=== PATIENT | male | born 1985 | race Caucasian/White ===

== ENCOUNTER 2021-11-01 08:46 | Emergency (ER) | payer OTHER, SELFPAY ==
--- NOTE | ~2021-11-01 | XR_ITS ---
EXAMINATION: XR CHEST CLINICAL INFORMATION: Cough, SOB. COMPARISON: None TECHNIQUE: Frontal view of the chest was obtained. FINDINGS: The lungs are well-expanded and clear of acute process. The heart size and pulmonary vascularity is normal. There is mild S-shaped scoliosis of dorsal spine. No lytic process. XR/XR chest 1V IMPRESSION: No acute cardiopulmonary process seen. Mild scoliosis..
[2021-11-01 09:21] VITALS: BP 117/60; PULSE 68; RESP 17; TEMP 36.1; O2SAT 96; BMI 25.8
--- NOTE | 2021-11-01 09:47 | ED.GENADULT ---
HPI - General Adult General Chief complaint: General Medical Stated complaint: Sore throat/back pain Time Seen by Provider: 11/01/21 09:23 Source: patient Mode of arrival: ambulatory History of Present Illness HPI narrative: 35-year-old male with no significant past medical history presenting to the ED complaining of sore throat, myalgias, productive cough, mild SOB x5 days. Also reports low back pain radiating down left lower extremity x a few days from [employer] at work. Denies fever, ear pain, recent travel, COVID-19 exposure, noon back injury, urinary incontinence/retention, numbness, tingling, weakness Onset (ago): day(s) Radiation: extremity Severity: mild Pain Consistency: constant Exacerbating factors: movement Associated symptoms: cough and shortness of breath Related Data Previous Rx's Medication Instructions Recorded acetaminophen 500 mg tablet 500 mg PO Q6H PRN #20 tab 11/01/21 (Tylenol Extra Strength) cyclobenzaprine 5 mg tablet 5 mg PO Q8H PRN 5 Days #14 tab 11/01/21 lidocaine 5 % topical patch 1 patch TOPICAL DAILY PRN #30 ea 11/01/21 (Lidoderm) MDD remove after 12 hours naproxen 500 mg tablet 500 mg PO BID PRN 10 Days #20 tab 11/01/21 Allergies Allergy/AdvReac Type Severity Reaction Status Date / Time No Known Allergies Allergy Verified 11/01/21 09:24 [No Known Allergies*] Review of Systems Review of Systems: Constitutional: No Fever, No Chills, No Fatigue, No Malaise ENT/Mouth: No Ear Pain, No Nasal Congestion, No Sinus Pain, No Hoarseness, + sore throat Eyes: No Eye Pain, No Swelling, No Redness, No Discharge, No Vision Changes Cardiovascular: No Chest Pain, + SOB, No Edema, No Palpitations Respiratory: + Cough, + Sputum, No Wheezing, No Smoke Exposure, No Dyspnea Gastrointestinal: No Nausea, No Vomiting, No Diarrhea, No Constipation, No Abdominal pain Genitourinary: No Dysuria, No Urinary Frequency, No Hematuria,No Flank Pain, no urinary incontinence/retention Musculoskeletal: + joint pain, + Myalgias, No Joint Swelling Skin: No Skin Lesions, No rash Neuro: No Weakness, No Numbness, No Paresthesias, No Dizziness, No Headache Yes all other systems are reviewed and are negative Neurologic: Denies Sensory deficit (Neuro) [facility] Past Medical History Attestation statement: The following information was validated with the patient. Medical History No known health problems Social History Social History Advance Directives: No Advance Directives Information Provided: No Physical Exam Vital Signs: Vital Signs: Last Vital Signs Temp 97.0 F 11/01/21 09:21 Pulse 68 11/01/21 10:16 Resp 17 11/01/21 09:21 BP 117/60 11/01/21 09:21 Pulse Ox 96 11/01/21 09:21 BMI result Body Mass Index 25.8 Const: General: cooperative, healthy appearing and no acute distress Orientation/consciousness: patient oriented x3 Limitations: no limitations HENMT: Head: Yes normal to inspection Ears: hearing grossly normal bilaterally General nose exam: Normal external nose present Face and sinus: Yes normal facial exam Mouth: Normal oral and palatal mucosa present Throat: Yes posterior oropharynx normal, Yes tonsils normal, Yes uvula midline and No peritonsillar mass Eyes: General: appearance normal, both eyes and all related structures EOM: EOMs intact bilaterally Neck: Neck: Yes normal visual inspection, Yes no lymphadenopathy and Yes no meningeal signs Resp: Effort & Inspection: normal respiratory effort Auscultation: wheezes (Slight end-expiratory wheeze) Cardio: Rate: regular rate Heart sounds: S1 normal heart sound present and S2 normal heart sound present GI: Inspection: Yes normal to inspection Palpation (GI): Soft to palpation and nontender : General: Yes no CVA tenderness Back/Spine/Pelvis: Other: No midline thoracic/lumbar spinous tenderness/step-off or deformity. Bilateral lumbar paraspinal/MSK tenderness to palpation Back: no CVA tenderness Skin: Rashes: no rashes Wounds: no wounds Neuro: General: patient oriented x3 and no meningeal signs Gait exam (Neuro): Normal gait present Motor exam (neuro): 5/5 motor strength present throughout Sensory Exam: No Sensory deficit (Neuro) Extrem: Other: No saddle anesthesia. Ambulating with steady gait General: Yes normal to inspection Course Course Course Narrative: -COVID-19 and rapid strep negative. CXR unremarkable. Results discussed with patient including worrisome signs and symptoms and strict return precautions Medical Decision Making MDM Narrative Medical decision making narrative: 35-year-old male with no significant past medical history presenting to the ED complaining of sore throat, myalgias, productive cough, mild SOB x5 days. Also reports low back pain radiating down left lower extremity x a few days from [employer] at work. On exam vital signs stable, NAD/nontoxic, lungs with mild end expiratory wheeze, no midline spinous tenderness throughout, no red flag symptoms, no saddle anesthesia. Concern for viral syndrome/COVID-19. Rule out pneumonia. Likely MSK back pain/strain/muscle spasming. Low concern for cauda equina/cord compression or fracture. Plan: COVID-19 testing, rapid strep, CXR, albuterol inhaler Lab Data Labs: Lab Results 11/01/21 11/01/21 Range/Units 09:47 09:47 COVID-19 (LUPE) Negative (Negative) COVID-19 Clin Com See Note S. pyogenes GrpA RAMIREZ Negative (Negative) Discharge Plan Discharge Clinical Impression: Acute viral syndrome Low back pain Qualifiers: Chronicity: acute Back pain laterality: bilateral Sciatica presence: with sciatica Sciatica laterality: sciatica of left side Qualified Code(s): M54.42 - Lumbago with sciatica, left side Patient Disposition: Home, Self-Care Instructions: Acute Low Back Pain (ED), Viral Syndrome (ED) Additional Instructions: You Tested negative for COVID-19 and strep throat. your chest x-ray was unremarkable Your back pain is likely musculoskeletal Flexeril is a muscle relaxer, take at night as it makes you drowsy, do not drive, drink alcohol, or operate machinery while taking it Naproxen as an anti-inflammatory / pain medication, take with food Lidoderm patches are numbing patches, apply to painful area In addition take Tylenol at home If symptoms persist or worsen, pain becomes unbearable, you developed urinary retention or incontinence, or weakness return to the ED Prescriptions: New acetaminophen [Tylenol Extra Strength] 500 mg tablet 500 mg PO Q6H PRN (Reason: pain or fever) Qty: 20 RF: 0 lidocaine [Lidoderm] 5 % adhesive patch,medicated 1 patch topical DAILY MDD remove after 12 hours PRN (Reason: pain) Qty: 30 RF: 0 naproxen 500 mg tablet 500 mg PO BID PRN (Reason: pain) 10 Days Qty: 20 RF: 0 cyclobenzaprine 5 mg tablet 5 mg PO Q8H PRN (Reason: pain (scale score 7-10)) 5 Days Qty: 14 RF: 0 Referrals: Physician,None [Primary Care Provider] - 5 days Stand Alone Forms: Work/School Release
[2021-11-01 10:08] LABS: IDNOW Serial# 08D9AD1C; Strep A Nucleic Acid Negative (Negative)
[2021-11-01 10:12] LABS: COVID-19 Test Negative (Negative); IDNOW Serial# 9DD0AD1C
[2021-11-01] MEDS: Albuterol Sulfate 90 MCG 8 GM INHALER 4 PUFF INHALE (10:15)
[2021-11-01 10:16] VITALS: PULSE 68; O2SAT 96
== END 2021-11-01 10:43 | disposition home or self-care (01) ==
PROVIDERS: Physician Assistant; Emergency Provider Emergency Medicine
DX: B34.9 Viral infection, unspecified (principal); Z20.822 Contact with and (suspected) exposure to COVID-19; M54.42 Lumbago with sciatica, left side
CPT/HCPCS: 36415; 71045; 87635; 87651; 94640; 99283; 99284

== ENCOUNTER 2022-01-22 03:45 | Emergency (ER) | payer OTHER, SELFPAY ==
[2022-01-22 03:49] VITALS: BP 126/80; BP 138/98; PULSE 66; PULSE 87; RESP 16; TEMP 36.8; O2SAT 100; O2SAT 97; BMI 22.9
[2022-01-22 04:00] VITALS: RESP 16
--- NOTE | 2022-01-22 04:02 | ED_ITS ---
HPI - General Adult General Chief complaint: ETOH/Substance Use Stated complaint: WITHDRAWING Time Seen by Provider: 01/22/22 03:58 Source: patient and EMS Mode of arrival: EMS Limitations: no limitations History of Present Illness HPI narrative: Patient comes to emergency room via EMS complaining of feeling dope sick . Patient states that the last time that he used heroin was approximately 24 hours ago. Patient has been working for the last 24 hours snow [employer]. Patient states that he feels very uncomfortable, restless. Patient is looking for permanent treatment for heroin addiction Related Data Previous Rx's Medication Instructions Recorded acetaminophen 500 mg tablet 500 mg PO Q6H PRN #20 tab 11/01/21 (Tylenol Extra Strength) cyclobenzaprine 5 mg tablet 5 mg PO Q8H PRN 5 Days #14 tab 11/01/21 lidocaine 5 % topical patch 1 patch TOPICAL DAILY PRN #30 ea 11/01/21 (Lidoderm) MDD remove after 12 hours naproxen 500 mg tablet 500 mg PO BID PRN 10 Days #20 tab 11/01/21 Allergies Allergy/AdvReac Type Severity Reaction Status Date / Time No Known Allergies Allergy Verified 11/01/21 09:24 [No Known Allergies*] Review of Systems Review of Systems: Constitutional : No Weight loss, No Fever, No Chills, No Night Sweats, No Fatigue, complaining of generalized malaise, feeling shaking ENT/Mouth : No Hearing loss, No Ear Pain, No Nasal Congestion, No Sinus Pain, No Hoarseness, No sore throat, No Rhinorrhea, No Swallowing Difficulty Eyes: No Eye Pain, No Swelling, No Redness, No Foreign Body, No Discharge, No Vision Changes Cardiovascular : No Chest Pain, No SOB, No Dyspnea on Exertion, No Orthopnea, No Edema, No Palpitations Respiratory : No Cough, No Sputum, No Wheezing, No Smoke Exposure, No Dyspnea Gastrointestinal : Feeling nauseous No Vomiting, No Diarrhea, No Constipation, No abdominal Pain, No Hematochezia, No Melena Genitourinary : no irregular bleeding, No Dysuria, No Urinary Frequency, No Hematuria, No Urinary Incontinence, No Urgency, No Flank Pain, No Urinary Flow Changes, No Hesitancy Musculoskeletal : No joint pain, No Myalgias, No Joint Swelling Skin : No Skin Lesions, No rash Neuro : No Weakness, No Numbness, No Paresthesias, No Loss of Consciousness, No Dizziness, No Headache Psych : No Anxiety/Panic, No Depression, No SI/HI/AH/VH, No Social Issues, Heme/Lymph: No Bruising, No Bleeding,No Lymphadenopathy Endocrine : No Polyuria, No Polydipsia, No Temperature Intolerance [facility] Past Medical History Medical History (Updated 01/22/22 @ 04:06 by Maritza Hansen MD) Heroin abuse No known health problems Social History Social History Advance Directives: No Physical Exam ED Vital Signs: Vital Signs - 24 hr 01/22/22 03:49 01/22/22 04:00 Temperature 98.2 F Pulse Rate 66 Respiratory Rate 16 16 Blood Pressure 126/80 Pulse Oximetry 97 BMI result Body Mass Index 22.9 Const Other: Appearance: Alert. Oriented X3. Since uncomfortable Eyes: Pupils equal, round and reactive to light. ENT: Pharynx normal. Neck: Normal inspection. Neck supple. No lymph nodes noted. No crepitus CVS: Normal heart rate and rhythm. Pulses normal. Normal S1 and S2 Respiratory: No respiratory distress. Breath sounds normal. No Wheezing. No rales Abdomen: Soft and nontender. No rigidity. No distention. Skin: Skin warm and dry. Normal skin color. Normal skin turgor. Extremities: No lower extremity edema. No Lacerations. No Rash Neuro: Oriented X 3. No motor deficit. No sensory deficit. Moving all ext ermities. No slurred speech. Course Course Course Narrative: Patient was given medication for symptoms, clonidine, hydroxyzine, loperamide, Zofran. 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 Physician after patient started at 04:07 Discharge Plan Discharge Clinical Impression: Opiate withdrawal Patient Disposition: Still a Patient Prescriptions: No Action acetaminophen [Tylenol Extra Strength] 500 mg tablet 500 mg PO Q6H PRN (Reason: pain or fever) Qty: 20 0RF lidocaine [Lidoderm] 5 % adhesive patch,medicated 1 patch topical DAILY MDD remove after 12 hours PRN (Reason: pain) Qty: 30 0RF Rx Instructions: leave on most painful area for up to 12 hrs naproxen 500 mg tablet 500 mg PO BID PRN (Reason: pain) 10 Days Qty: 20 0RF cyclobenzaprine 5 mg tablet 5 mg PO Q8H PRN (Reason: pain (scale score 7-10)) 5 Days Qty: 14 0RF
[2022-01-22] MEDS: hydrOXYzine HCL 50 MG TABLET PO (04:12)
[2022-01-22] MEDS: cloNIDine HCL 0.2 MG TABLET PO (04:12)
[2022-01-22] MEDS: Loperamide HCl 2 MG CAPSULE 4 MG PO (04:12)
[2022-01-22] MEDS: Ondansetron ODT 4 MG TAB.RAPDIS TRANSLINGU (04:13)
[2022-01-22] MEDS: LORazepam 1 MG TABLET 2 MG PO (04:58)
[2022-01-22 05:53] VITALS: RESP 16
--- NOTE | 2022-01-22 08:05 | PC.NURSE ---
pt is currently asleep, respirations even and unlabored, pt awaiting care team
[2022-01-22] MEDS: Buprenorphine/Naloxone 8/2 mg FILM 1 FILM SUBLINGUAL ×2 (08:53→09:41)
[2022-01-22 08:54] VITALS: BP 130/91; PULSE 62; RESP 16; O2SAT 100
--- NOTE | 2022-01-22 09:33 | PC.NURSE ---
recover health coach at bedside
[2022-01-22] MEDS: Naloxone HCl Nasal TAKE HOME 4 MG SPRAY NOSTRILALT (09:41)
--- NOTE | 2022-01-22 09:44 | MHC.RECOVSUP ---
? Reason for consult: Heroin withdrawals o?? Current location ?ED-9 o?? Identified substance use concern heroin ? ?? Withdrawal ?? Support ? Intervention: o?? MAT started or to be started o?? Community resources provided o?? Harm reduction discussion ? Plan: o?? Referral to [facility] o?? Follow up tomorrow? o?? Patient to follow up with [facility] after discharge ? Additional information: Met with Pt. Pt. states that he is going through withdrawals. Pt. was given 8/2mg of suboxone. Also made referral to [facility]. for Monday. Gave Pt. information and resources. ?
== END 2022-01-22 10:00 | disposition still patient (30) ==
PROVIDERS: Emergency Provider Emergency Medicine Emergency Medical Services
DX: F11.13 Opioid abuse with withdrawal (principal)
CPT/HCPCS: 99284

== ENCOUNTER → 2022-01-24 09:54 | Outpatient (BNVA) | payer OTHER, SELFPAY | PROVIDERS: Visit Provider Internal Medicine | DX: F11.20 Opioid dependence, uncomplicated (principal) | CPT/HCPCS: 80305; 99202 ==

== ENCOUNTER → 2022-01-31 11:48 | Outpatient (BNVA) | payer OTHER, SELFPAY | PROVIDERS: Visit Provider Internal Medicine | DX: Z51.81 Encounter for therapeutic drug level monitoring (principal); F11.20 Opioid dependence, uncomplicated | CPT/HCPCS: 80305; 99212 ==

== ENCOUNTER → 2022-02-07 11:20 | Outpatient (BNVA) | payer OTHER, SELFPAY | PROVIDERS: Visit Provider Internal Medicine | DX: F11.20 Opioid dependence, uncomplicated (principal) | CPT/HCPCS: 80305; 99212 ==